=== PATIENT | female | born 1960 | race Caucasian/White ===

== ENCOUNTER 2019-12-29 04:19 | Emergency (ER) | payer BC ==
[2019-12-29] MEDS ORDERED: Aspirin 81 MG Tab.Chew ONE (04:33)
[2019-12-29] MEDS ORDERED: Nitroglycerin 0.4 MG Tab.SL ONE (04:33)
[2019-12-29] MEDS ORDERED: Nitroglycerin 0.4 MG Tab.SL SL ONE ×3 (04:35→04:44)
[2019-12-29] MEDS ORDERED: Aspirin 81 MG Tab.Chew PO ONE (04:35)
[2019-12-29] MEDS ORDERED: Ondansetron 4 MG/2 ML SDV ONE (04:48)
[2019-12-29] MEDS ORDERED: Morphine 2 MG/ML Syringe ONE (04:48)
[2019-12-29] MEDS ORDERED: Ondansetron 4 MG/2 ML SDV IVPUSH ONE (04:49)
--- NOTE | 2019-12-29 04:49 | EDM.PDOC ---
ED HPI GENERAL MEDICAL PROBLEM - General Chief Complaint: Chest Pain Stated Complaint: CHEST PAIN Time Seen by Provider: 12/29/19 04:28 Source of Information: Reports: Patient History Limitations: Reports: No Limitations - History of Present Illness INITIAL COMMENTS - FREE TEXT/NARRATIVE: Is a 59-year-old female. Had some chest pain around 3 PM yesterday that lasted till around 7 PM. Chest pressure into left shoulder and down left arm. No nausea or diaphoresis noted then. Pressure just seem to ease up at that time without her doing anything. Then she awoke around 3:00 this morning with centralized chest pressure again going into her left shoulder down her left arm to her fingers and into her back. She became somewhat diaphoretic and nauseated at home before she came to the ER. When she arrived to the ER she was diaphoretic and pale complaining of this chest heaviness and tightness. She was not necessarily short of breath at the time did she does not have any medical history of high blood pressure or diabetes or cardiac disease. She did smoke but stopped about a year ago though she says she has occasional cigarette at times. The pain does not radiate into her jaw. Never had these symptoms in the past. No history of esophageal reflux or esophagitis. No hx of gallbladder disease. Yesterday she was outside pulling weeds but that was not unusual for her and it was not strenuous work. Chest Pain Score (Numeric/FACES): 9 - Related Data Allergies Allergy/AdvReac Type Severity Reaction Status Date / Time No Known Allergies Allergy Verified 12/29/19 04:33 Home Meds: Home Meds . [No Known Home Meds] 12/29/19 [History] Social & Family History - Family History Family Medical History: Noncontributory - Tobacco Use Smoking Status *Q: Former Smoker Used Tobacco, but Quit: Yes Month/Year Tobacco Last Used: 2019 - Caffeine Use Caffeine Use: Reports: Coffee - Recreational Drug Use Recreational Drug Use: No ED ROS GENERAL - Review of Systems Review Of Systems: See Below Constitutional: Denies: Fever, Chills HEENT: Reports: No Symptoms Respiratory: Denies: Shortness of Breath, Cough Cardiovascular: Reports: Chest Pain Endocrine: Reports: No Symptoms GI/Abdominal: Reports: Nausea. Denies: Abdominal Pain, Diarrhea, Vomiting : Reports: No Symptoms Musculoskeletal: Reports: No Symptoms Skin: Reports: Pallor, Diaphoresis Neurological: Reports: No Symptoms Psychiatric: Reports: No Symptoms Hematologic/Lymphatic: Reports: No Symptoms ED EXAM, GENERAL - Physical Exam Exam: See Below Exam Limited By: No Limitations General Appearance: Alert, WD/WN, Mild Distress Eye Exam: Bilateral Eye: Normal Inspection Ears: Normal External Exam Nose: Normal Inspection Throat/Mouth: Normal Inspection, Normal Lips, Normal Voice, No Airway Compromise Head: Normocephalic Neck: Supple Respiratory/Chest: No Respiratory Distress, Lungs Clear, Normal Breath Sounds Cardiovascular: Regular Rate, Rhythm, No Edema, No Murmur GI/Abdominal: Soft, Non-Tender Back Exam: Full Range of Motion Extremities: Normal Inspection, Normal Range of Motion. No: Pedal Edema Neurological: Alert, Oriented Psychiatric: Anxious Skin Exam: Warm, Diaphoretic EKG INTERPRETATION EKG Date: 12/29/19 Time: 04:30 EKG Interpretation Comments: KG shows a sinus rhythm rate of 55. Have some anterior Q waves noted and may be a slight amount of ST changes in the lateral leads noted but there is no acute ST elevation or ischemia noted. Second EKG at 4:56 AM, still shows a sinus bradycardia rate of 52 with anterior Q waves. This 1 does not look any different than the first 1 is far as there is no acute ST or T wave changes no ischemia there is possibly a slight amount of lateral lead ST changes and biphasic T waves. Course - Vital Signs Last Recorded V/S: Last Vital Signs Temp 96.5 F L 12/29/19 04:29 Pulse 56 L 12/29/19 05:36 Resp 17 12/29/19 05:36 BP 137/82 12/29/19 05:36 Pulse Ox 96 12/29/19 05:36 - Orders/Labs/Meds Orders: Active Orders 24 hr Category Date Time Status EKG Documentation Completion [RC] ASDIRECTED Care 12/29/19 04:30 Active EKG Documentation Completion [RC] ASDIRECTED Care 12/29/19 04:56 Active EKG 12 Lead [EK] Stat Ther 12/29/19 04:30 Ordered EKG 12 Lead [EK] Stat Ther 12/29/19 04:56 Ordered Labs: Laboratory Tests 12/29/19 12/29/19 Range/Units 04:31 04:31 WBC 11.14 H (3.98-10.04) K/mm3 RBC 4.90 (3.98-5.22) M/mm3 Hgb 14.8 (11.2-15.7) gm/dl Hct 44.6 (34.1-44.9) % MCV 91.0 (79.4-94.8) fl MCH 30.2 (25.6-32.2) pg MCHC 33.2 (32.2-35.5) g/dl RDW Std Deviation 42.9 (36.4-46.3) fL Plt Count 337 (182-369) K/mm3 MPV 9.1 L (9.4-12.3) fl Neut % (Auto) 46.7 (34.0-71.1) % Lymph % (Auto) 42.6 (19.3-51.7) % [place] % (Auto) 9.1 (4.7-12.5) % Eos % (Auto) 1.2 (0.7-5.8) Baso % (Auto) 0.2 (0.1-1.2) % Neut # (Auto) 5.21 (1.56-6.13) K/mm3 Lymph # (Auto) 4.75 H (1.18-3.74) K/mm3 [place] # (Auto) 1.01 H (0.24-0.36) K/mm3 Eos # (Auto) 0.13 (0.04-0.36) K/mm3 Baso # (Auto) 0.02 (0.01-0.08) K/mm3 Manual Slide Review Normal smear Sodium 144 (136-145) mEq/L Potassium 3.8 (3.5-5.1) mEq/L Chloride 106 (98-107) mEq/L Carbon Dioxide 27 (21-32) mEq/L Anion Gap 14.8 (5-15) BUN 21 H (7-18) mg/dL Creatinine 0.9 (0.55-1.02) mg/dL Est Cr Clr Drug Dosing 66.22 mL/min Estimated GFR (MDRD) > 60 (>60) mL/min BUN/Creatinine Ratio 23.3 H (14-18) Glucose 121 H (80-115) mg/dL Calcium 9.4 (8.5-10.1) mg/dL Total Bilirubin 0.4 (0.2-1.0) mg/dL AST 29 (15-37) U/L ALT 25 (14-59) U/L Alkaline Phosphatase 64 (46-116) U/L Troponin I 3.859 H* (0.00-0.056) ng/mL Total Protein 7.1 (6.4-8.2) g/dl Albumin 3.8 (3.4-5.0) g/dl Globulin 3.3 gm/dL Albumin/Globulin Ratio 1.2 (1-2) Meds: Medications Discontinued Medications Generic Name Dose Route Start Last Admin Trade Name Chuck PRN Reason Stop Dose Admin Al Hydroxide/Mg Hydroxide Confirm 12/29/19 05:02 12/29/19 05:06 Mag-Al Plus Administered 12/29/19 05:03 Not Given Dose 30 ml .ROUTE .STK-MED ONE Aspirin 324 mg 12/29/19 04:35 12/29/19 04:37 Aspirin PO 12/29/19 04:36 324 mg ONETIME ONE Administration Aspirin Confirm 12/29/19 04:33 12/29/19 04:38 Aspirin Administered 12/29/19 04:34 Not Given Dose 324 mg .ROUTE .STK-MED ONE Al Hydroxide/Mg Hydroxide 30 0 ml 12/29/19 05:05 12/29/19 05:05 ml/ Lidocaine HCl 15 ml PO 12/29/19 05:06 45 ml ONETIME ONE Administration Heparin Sodium (Porcine) 4,000 units 12/29/19 05:21 12/29/19 05:32 Heparin Sodium IVPUSH 12/29/19 05:22 4,000 units .BOLUS ONE Administration Heparin Sodium (Porcine) Confirm 12/29/19 05:27 12/29/19 05:32 Heparin Sodium Administered 12/29/19 05:28 Not Given Dose 5,000 units .ROUTE .STK-MED ONE Heparin Sodium/Dextrose 25,000 units in 500 mls @ 21.772 mls/hr 12/29/19 05: 30 12/29/19 05:33 Heparin 25,000 Units In D5w 500 Ml IV 11.02 units/kg/hr TITRATE FADY 20 mls/hr Administration Protocol 12 UNITS/KG/HR Heparin Sodium/Dextrose Confirm 12/29/19 05:27 12/29/19 05:32 Heparin 25,000 Units In D5w 500 Ml Administered 12/29/19 05:28 Not Given Dose 500 mls @ as directed .ROUTE .STK-MED ONE Lidocaine HCl Confirm 12/29/19 05:02 12/29/19 05:06 Xylocaine 2% Viscous Administered 12/29/19 05:03 Not Given Dose 15 ml .ROUTE .STK-MED ONE Morphine Sulfate 2 mg 12/29/19 04:50 12/29/19 04:51 Morphine IVPUSH 12/29/19 04:51 2 mg ONETIME ONE Administration Morphine Sulfate Confirm 12/29/19 04:48 12/29/19 04:52 Morphine Administered 12/29/19 04:49 Not Given Dose 2 mg .ROUTE .STK-MED ONE Nitroglycerin 0.4 mg 12/29/19 04:35 12/29/19 04:36 Nitrostat SL 12/29/19 04:36 0.4 mg ONETIME ONE Administration Nitroglycerin Confirm 12/29/19 04:33 12/29/19 04:38 Nitrostat Administered 12/29/19 04:34 Not Given Dose 0.4 mg .ROUTE .STK-MED ONE Nitroglycerin 0.4 mg 12/29/19 04:38 12/29/19 04:40 Nitrostat SL 12/29/19 04:39 0.4 mg ONETIME ONE Administration Nitroglycerin 0.4 mg 12/29/19 04:44 12/29/19 04:48 Nitrostat SL 12/29/19 04:45 Not Given ONETIME ONE Nitroglycerin 1 gm 12/29/19 05:36 12/29/19 05:37 Nitro-Bid 2% TOP 12/29/19 05:37 1 gm ONETIME ONE Administration Nitroglycerin Confirm 12/29/19 05:32 12/29/19 05:37 Nitro-Bid 2% Administered 12/29/19 05:33 Not Given Dose 1 gm .ROUTE .STK-MED ONE Ondansetron HCl 4 mg 12/29/19 04:49 12/29/19 04:51 Zofran IVPUSH 12/29/19 04:50 4 mg ONETIME ONE Administration Ondansetron HCl Confirm 12/29/19 04:48 12/29/19 04:52 Zofran Administered 12/29/19 04:49 Not Given Dose 4 mg .ROUTE .STK-MED ONE - Radiology Interpretation Free Text/Narrative:: Chest x-ray does not show any acute changes and the aortic knob and mediastinum are narrow. - Re-Assessments/Exams Free Text/Narrative Re-Assessment/Exam: 12/29/19 05:26 I spoke to the patient regarding her elevated troponin of 3.859 that this is her heart but she is having symptoms from that she needs to go down to [place] for evaluation. She is chosen to go to [facility] in [facility]. I did speak to Dr. Proctor in the ER and he accepts the patient in transport for further evaluation and treatment. 12/29/19 05:29 And is feeling better her pain is now about a 3 or 4 out of 10 instead of 10 out of 10. She is resting much more comfortably at this time. 12/29/19 05:30 The one view chest x-ray was pushed down to [facility] in [facility]. Departure - Departure Time of Disposition: 05:27 Disposition: DC/Tfer to Acute Hospital 02 Reason for Transfer *Q: Primary PCI Indicated Condition: Fair Clinical Impression: Non-STEMI (non-ST elevated myocardial infarction), Elevated troponin, Chest pain due to CAD Sepsis Event Note - Evaluation Sepsis Screening Result: No Definite Risk - Focused Exam Date Exam was Performed: 12/29/19 Time Exam was Performed: 19:08 ED Communication - ED Communication Date/Time Date: 12/29/19 Time Called: 05:28 - Discussed Case With (1) Discussed Case With (1): Other (Emergency room physician) Person/s Notified (1): Dr. Proctor (He agrees to accept the patient in transport for further evaluation and treatment) - My Orders Last 24 Hours: My Active Orders 12/29/19 04:30 EKG Documentation Completion [RC] ASDIRECTED EKG 12 Lead [EK] Stat 12/29/19 04:56 EKG Documentation Completion [RC] ASDIRECTED EKG 12 Lead [EK] Stat - Assessment/Plan Last 24 Hours: My Active Orders 12/29/19 04:30 EKG Documentation Completion [RC] ASDIRECTED EKG 12 Lead [EK] Stat 12/29/19 04:56 EKG Documentation Completion [RC] ASDIRECTED EKG 12 Lead [EK] Stat
[2019-12-29] MEDS ORDERED: Morphine 2 MG/ML Syringe IVPUSH ONE (04:50)
[2019-12-29] MEDS ORDERED: Lidocaine 2% Viscous Solution 15 ML Cup ONE (05:02)
[2019-12-29] MEDS ORDERED: Aluminum Hydroxide/Magnesium Hydroxide/Simethicone Susp 30 ML Cup ONE (05:02)
[2019-12-29] MEDS ORDERED: Alum Hydrox/Mag Hydrox/Simeth 30 ML, Lidocaine 2% 15 ML PO ONE ×2 (05:05)
[2019-12-29] MEDS ORDERED: Heparin Sodium 5,000 Units/ML Vial IVPUSH ONE (05:21)
[2019-12-29] MEDS ORDERED: Heparin Sodium 5,000 Units/ML Vial ONE (05:27)
[2019-12-29] MEDS ORDERED: Heparin Sodium/D5W 500 ML ONE (05:27)
[2019-12-29] MEDS ORDERED: Heparin Sodium/D5W 25,000 UNITS/500 ML BAG IV SCH (05:30)
[2019-12-29] MEDS ORDERED: Nitroglycerin 2% Oint 1 GM UD Packet ONE (05:32)
[2019-12-29] MEDS ORDERED: Nitroglycerin 2% Oint 1 GM UD Packet TOP ONE (05:36)
--- NOTE | 2019-12-29 11:46 | CR ---
Chest: Portable view of the chest was obtained. Comparison: No prior chest imaging is available. Heart size and mediastinum are normal. Lungs are clear with no acute parenchymal change. Bony structures are grossly intact. Impression: 1. Nothing acute is seen on portable chest x-ray. Diagnostic code #1 This report was dictated in MDT
== END 2019-12-29 05:50 ==
LOC: JD.ED 04:19
DX: I21.4 Non-ST elevation (NSTEMI) myocardial infarction (principal); I25.10 Atherosclerotic heart disease of native coronary artery without angina pectoris; R79.89 Other specified abnormal findings of blood chemistry; Z87.891 Personal history of nicotine dependence
CPT/HCPCS: 36415; 71045; 80053; 84484; 85025; 93005; 96365; 96375; 99285; A9270; J1644; J2270; J2405; 93010